=== PATIENT | female | born 1995 | race Caucasian/White ===

== ENCOUNTER 2021-03-14 21:29 | Emergency (ER) | payer MEDICAID, SELFPAY ==
[2021-03-14 21:34] VITALS: BP 126/83; PULSE 72; RESP 16; TEMP 36.3; O2SAT 98
--- NOTE | 2021-03-14 22:27 | ED.GENADUL_ITS ---
Discharge Plan Disposition Patient Disposition: HOME Condition: Improving Discharge Details Clinical Impression: Headache Primary Care Provider: Unknown,Unknown ED Provider: Ayanna Kaplan Home Meds and New Rx's Prescriptions: No Action No Known Home Meds RF: 0 Discharge Instructions Instructions: General Headache (ED) Additional Instructions: Follow up with primary care provider in 3-5 days. Return to ED sooner if any worsening or concerns. Increase oral fluids. Please take Tylenol or Ibuprofen with food every 4-6 hours as needed for pain and swelling. Discharge Data Discharge Date/Time-TO BE ENTERED AT DEPARTURE: 03/14/21 23:25 Medical Decision Making 25-year-old female presents to the ER chief complaint of right-sided headache which began this morning. She does have a history of migraine headache. She endorses photosensitivity, nausea vomiting. Denies any recent head injuries or trauma. Took 2 ibuprofen this morning. Is a daily smoker. Denies any drugs or alcohol. U-preg, Meds ordered including normal saline 1 L, Compazine, Benadryl, Toradol. 2316: Patient reevaluation she reports almost total improvement of her headache. She feels well enough to go home. We will plan to discharge patient with instructions to follow-up with PCP. HPI General Mode of arrival: ambulatory . Date/Time Provider Initiated Documentation: 03/14/21 22:17 . Limitations to Documentation: no limitations . Information obtained by: patient and RN notes reviewed . HPI Narrative: 25-year-old female presents to the ER chief complaint of right-sided headache which began this morning. She does have a history of migraine headache. She endorses photosensitivity, nausea vomiting. Denies any recent head injuries or trauma. Took 2 ibuprofen this morning. Is a daily smoker. Denies any drugs or alcohol. Related Data Home Medications Medication Instructions Recorded Confirmed Unknown [No Known Home Meds] 03/14/21 03/14/21 Allergies Allergy/AdvReac Type Severity Reaction Status Date / Time ciprofloxacin [From Cipro] Allergy Unverified 03/14/21 21:38 General Stated Complaint: Headache [place]: 3 Review of Systems All systems reviewed & are unremarkable except as noted in HPI and below Constitutional Constitutional: Reports headache(s) ENT Ears, Nose, Mouth, and Throat: Reports headache(s) Neurologic Neurologic: Reports headache(s) [facility] Social History Smoking/Tobacco Use Status: Current every day Tobacco Type: cigarettes Smoking risk assessment performed?: Yes Alcohol Intake: never Drug use: Never Substance use type: does not use Do you feel safe at home: Yes Do you feel safe in your relationship?: Yes Exam Narrative Exam Narrative: Constitutional: Alert and oriented x3. Appears stated age. Normal body habitus. Head: Normocephalic, no trauma. Eyes: Pupils PERRLA, Red reflex noted, EOM's intact. Eyelids symmetrical without lesions, discharge, or swelling. ENT: Bilateral TM's WNL, External ear normal to inspection, no mastoid TTP, swelling, or erythema, Nasal turbinates WNL, no nasal discharge. Normal dentition, Posterior pharynx WNL, no exudate. Chest: RRR, Normal S1, S2, distal pulses intact. Resp: Lungs clear to auscultation bilaterally, no wheezes, rales, or rhonchi. Musculoskeletal: Normal gait, 5/5 strength to all four extremities. Skin: No suspicious rashes or lesions. Capillary refill less than 2 sec. Neurologic: Cranial nerves II-XII intact. Alert and oriented x 3. No facial droop, no focal neuro deficits. No nuchal rigidity. Hematologic/Lymphatic: No ecchymosis, no lymphadenopathy. Course Vital Signs Vital signs: Vital Signs Temperature 36.3 C L 03/14/21 21:34 Pulse 72 03/14/21 21:34 Respiratory Rate 16 03/14/21 21:34 Blood Pressure 126/83 03/14/21 21:34 Pulse Oximetry 98 03/14/21 21:34 Temperature 36.3 C L 03/14/21 21:34 Temperature Source Temporal Artery Scan 03/14/21 21:34 Pulse 72 03/14/21 21:34 Respiratory Rate 16 03/14/21 21:34 Respiratory Effort Non-Labored 03/14/21 21:38 Blood Pressure 126/83 03/14/21 21:34 Blood Pressure Position Sitting 03/14/21 21:34 Pulse Oximetry 98 03/14/21 21:34 Oxygen Delivery Method Room Air 03/14/21 21:34 Oxygen Flow Rate 0 03/14/21 21:34 Pain Level 9 03/14/21 21:43
[2021-03-14] MEDS: Normal Saline 1,000 ML 1000 ML IV (22:38)
[2021-03-14] MEDS: diphenhydrAMINE 50 MG/ML VIAL 25 MG IVP (22:39)
[2021-03-14] MEDS: Prochlorperazine 10 MG/2 ML VIAL IVP (22:39)
[2021-03-14] MEDS: Ketorolac 30 MG/ML VIAL IVP (22:39)
--- NOTE | 2021-03-14 22:45 | NUR.NOTE ---
Nursing Note: Patient medicated as ordered by ER provider for headache.
[2021-03-14 23:25] VITALS: BP 119/68; PULSE 66; RESP 16; O2SAT 98
--- NOTE | 2021-03-15 00:07 | NUR.NOTE ---
Referral to Care Management to establish pcp routinely. Patient has no phone so everything will need to be mailed.Nursing Note:
== END 2021-03-14 23:25 | disposition home or self-care (01) ==
PROVIDERS: Emergency Provider Registered Nurse Emergency
DX: R51.9 Headache, unspecified (principal); R11.2 Nausea with vomiting, unspecified
CPT/HCPCS: 81025; 96361; 96374; 96375; 99284; 99283; J0780; J1200; J1885

== ENCOUNTER 2021-10-27 12:52 | Emergency (ER) | payer MEDICAID, SELFPAY ==
[2021-10-27 12:56] VITALS: BP 120/51; PULSE 74; RESP 16; TEMP 37.3; O2SAT 99
--- NOTE | 2021-10-27 13:10 | ED.GENADUL_ITS ---
Discharge Plan Disposition Patient Disposition: HOME Condition: Stable Discharge Details Clinical Impression: Avulsion of skin Primary Care Provider: Carlos Cordova ED Provider: Cristóbal Santillan Home Meds and New Rx's Prescriptions: Continued Iud 0RF Discharge Instructions Instructions: Skin Avulsion (ED) Additional Instructions: keep the wound covered for a week as the wound heals if you have spreading redness, severe worsening pain or yellow/white discharge from the wound return to the emergency department Medical Decision Making 25 yo female was washing dishes when a glass broke and the jagged edge cut her right thenar eminence. Denies falls or loc. She has a 0.5cm circular skin avulsion on the mid thenar eminence. It is superficial and has full rom of all fingers and normal sensation and pulses/cap refill. The wound is more of an avulsion and not deep enough to close with sutures, no tunneling or palpable foreign bodies or foreign bodies on bedside u/s. will have nursing irrigate and d/c. Differential Diagnosis Differential Diagnosis: avulsion, abrasion HPI General Mode of arrival: ambulatory . Date/Time Provider Initiated Documentation: 10/27/21 12:55 . Limitations to Documentation: no limitations . Information obtained by: patient . History of Present Illness 25 year old F presents to the emergency department with the chief complaint of cut right hand, described as moderate, Patient started experiencing this hour(s) (1) and it has been constant. improves with No relieving factors improve symptom(s), No exacerbating factors reported . Patient notes no other symptoms.. Patient did receive the following treatments prior to arrival, none Related Data Home Medications Medication Instructions Recorded Confirmed Iud 10/27/21 Allergies Allergy/AdvReac Type Severity Reaction Status Date / Time ciprofloxacin [From Cipro] Allergy Unverified 10/27/21 12:59 General Stated Complaint: Laceration [place]: 4 Review of Systems All systems reviewed & are unremarkable except as noted in HPI and below Constitutional Constitutional: Denies chills, Denies fever(s) and Denies weakness Cardiovascular Cardiovascular: Denies chest pain and Denies dyspnea Respiratory Respiratory: Denies cough and Denies dyspnea Gastrointestinal Gastrointestinal: Denies abdominal pain, Denies nausea and Denies vomiting Genitourinary Genitourinary: Denies dysuria Musculoskeletal Musculoskeletal: Denies joint swelling Neurologic Neurologic: Denies weakness PFSH All Active Problems (Updated 10/27/21 @ 13:48 by Cristóbal Santillan MD) Headache (Acute) Avulsion of skin (Acute) Social History Smoking/Tobacco Use Status: Current every day Tobacco Type: cigarettes Smoking risk assessment performed?: Yes Alcohol Intake: never Drug use: Never Substance use type: does not use Do you feel safe at home: Yes Do you feel safe in your relationship?: Yes Exam Const General: no acute distress Orientation: alert HENMT Head: normal to inspection Ears: external ears normal General nose exam: external nose normal Mouth: moist mucous membranes Eyes General: appearance normal, both eyes and all related structures Neck Neck: normal visual inspection Resp Effort & Inspection: normal respiratory effort and able to speak in complete sentences Cardio Rate: regular rate Skin General skin exam: no rashes or lesions noted Neuro General: patient alert and patient oriented x3 Extrem General: full ROM and capillary refill normal Psych Mental Status: mental status grossly normal Course Vital Signs Vital signs: Vital Signs Temperature 37.3 C 10/27/21 12:56 Pulse 74 10/27/21 12:56 Respiratory Rate 16 10/27/21 12:56 Blood Pressure 120/51 L 10/27/21 12:56 Pulse Oximetry 99 10/27/21 12:56 Temperature 37.3 C 10/27/21 12:56 Temperature Source Skin 10/27/21 12:56 Pulse 74 10/27/21 12:56 Respiratory Rate 16 10/27/21 12:56 Respiratory Effort 10/27/21 12:56 Blood Pressure 120/51 L 10/27/21 12:56 Blood Pressure Position Sitting 10/27/21 12:56 Pulse Oximetry 99 10/27/21 12:56 Oxygen Delivery Method Room Air 10/27/21 12:56 Oxygen Flow Rate 0 10/27/21 12:56 Pain Level 6 10/27/21 12:56
== END 2021-10-27 14:16 | disposition home or self-care (01) ==
PROVIDERS: Emergency Provider Emergency Medicine; PCP Nurse Practitioner Family
DX: S61.411A Laceration without foreign body of right hand, initial encounter (principal); W25.XXXA Contact with sharp glass, initial encounter
CPT/HCPCS: 99282

== ENCOUNTER 2022-07-22 14:46 | Outpatient (REF) | payer MEDICAID, SELFPAY | END 2022-07-22 14:47 | disposition home or self-care (01) | LOC: LBN 14:46 | PROVIDERS: PCP Nurse Practitioner Family; Visit Provider Physician Assistant Medical | DX: J02.9 Acute pharyngitis, unspecified (principal) | CPT/HCPCS: 87081 ==

== ENCOUNTER → 2023-08-17 01:37 | Outpatient (CLI) | payer MEDICAID, SELFPAY ==
--- NOTE | 2023-08-17 14:08 | DI.RAD_ITS ---
Exam(s) XR ANKLE RT COMPLETE EXAM: XR ANKLE RT COMPLETE CLINICAL HISTORY: Right ankle pain,M25.571. TECHNIQUE: 2D digital imaging was performed of the right ankle. Four images were obtained. AP, lat eral and oblique views were obtained. COMPARISON: No exams were available for comparison FINDINGS: BONES: No acute fracture is present. No bony destructive lesion is seen. JOINTS: The ankle mortise is normally aligned. SOFT TISSUE: Normal. IMPRESSION: Unremarkable radiographs of the right ankle. DATA REPOSITORY: RADIATION DOSE DELIVERED:
== END ==
PROVIDERS: PCP Nurse Practitioner Family; Visit Provider Podiatrist
DX: M25.571 Pain in right ankle and joints of right foot (principal)
CPT/HCPCS: 73610